=== PATIENT | female | born 1960 | race Caucasian/White ===

== ENCOUNTER 2023-03-28 03:37 | Emergency (ER) | payer OTHER ==
[~2023-03-28] VITALS: Ht 170.2 cm; Wt 110.7 kg
[2023-03-28] MEDS ORDERED: diphenhydrAMINE 25 MG CAP PO ONE ×2 (04:37→04:45)
[2023-03-28] MEDS ORDERED: HYDROMORPHONE 1 MG/1 ML DISP.SYRIN ONE (04:37)
[2023-03-28] MEDS ORDERED: KETOROLAC TROMETHAMINE 30 MG INJ ONE (04:37)
[2023-03-28] MEDS ORDERED: CYCLOBENZAPRINE HCL 10 MG TABLET ONE (04:37)
[2023-03-28] MEDS ORDERED: HYDR-3980 PO (04:38)
[2023-03-28] MEDS ORDERED: CYCL10TA9 PO (04:38)
[2023-03-28] MEDS ORDERED: KETOROLAC TROMETHAMINE 30 MG INJ IM ONE (04:45)
[2023-03-28] MEDS ORDERED: HYDROMORPHONE 1 MG/1 ML DISP.SYRIN IM ONE (04:45)
[2023-03-28] MEDS ORDERED: CYCLOBENZAPRINE HCL 10 MG TABLET PO ONE (04:45)
[2023-03-28 05:39] VITALS: BP 140/85; TEMP 98.6; O2SAT 99
== END 2023-03-28 05:40 | disposition home or self-care (01) ==
LOC: ER 03:47
DX: M54.41 Lumbago with sciatica, right side (principal); J44.9 Chronic obstructive pulmonary disease, unspecified
CPT/HCPCS: 99284; 96372 ×2; Q0163; J1885; J1170

== ENCOUNTER 2023-06-02 11:31 | Emergency (ER) | payer OTHER ==
[~2023-06-02] VITALS: Ht 165.1 cm; Wt 95.3 kg
[~2023-06-02 11:31] MED LIST: CYCL10TA9 PO; HYDR-3980 PO
[2023-06-02] MEDS ORDERED: LETR2.5T PO (11:53)
[2023-06-02] MEDS ORDERED: FLUT1DIS28 IH (11:53)
[2023-06-02] MEDS ORDERED: APIX5TAB PO (11:53)
[2023-06-02 12:32] LABS: CARBON DIOXIDE 29 mmol/L (21-32); CHLORIDE 98 mmol/L (98-107); CREATININE 1.1 mg/dL (0.6-1.3); GLUCOSE 144 mg/dL (74-106); POTASSIUM 3.8 mmol/L (3.5-5.1); SODIUM SERUM 135 mmol/L (136-145); UREA NITROGEN, BLOOD 17 mg/dL (7-18)
[2023-06-02 12:45] LABS: ALANINE AMINOTRANSFERASE 19 U/L (14-59); ALBUMIN 3.2 g/dL (3.4-5.0); ALKALINE PHOSPHATASE 133 U/L (50-136); ASPARTATE AMINOTRANSFERASE 15 U/L (15-37); BILIRUBIN,DIRECT 0.1 mg/dL (0.0-0.2); BILIRUBIN,TOTAL 0.3 mg/dL (0.2-1.0); NT-PRO BNP 80 pg/mL (0-125); TOTAL PROTEIN, SERUM 8.1 g/dL (6.4-8.2)
[2023-06-02 12:49] LABS: BASOPHILS # (AUTO) 0.1 K/UL (0.0-0.2); BASOPHILS % (AUTO) 0.7 % (0.0-2.0); DIFFERENTIAL COMMENT 0; EOSINOPHILS # (AUTO) 0.2 K/uL (0.0-0.7); EOSINOPHILS % (AUTO) 1.8 % (0.0-7.0); HEMATOCRIT 35.3 % (31.2-41.9); HEMOGLOBIN 11.4 g/dL (10.9-14.3); LYMPHOCYTES % (AUTO) 19.1 % (20.5-51.5); MEAN CORPUSCULAR HEMOGLOBIN 25.4 uug (24.7-32.8); MEAN CORPUSCULAR HGB CONC 32 g/dL (32.3-35.6); MEAN CORPUSCULAR VOLUME 78.9 fL (75.5-95.3); MONOCYTES # (AUTO) 0.8 K/uL (0.1-1.30); MONOCYTES % (AUTO) 7.5 % (0.0-11.0); NEUTROPHILS # (AUTO) 7.4 K/uL (1.8-8.9); NEUTROPHILS % (AUTO) 70.9 % (38.5-71.5); PLATELET COUNT (AUTO) 354 K/uL (179-408); RED BLOOD CELL COUNT(AUTO) 4.48 MIL/uL (3.63-4.92); RED CELL DISTRIBUTION WIDTH 16.4 % (12.3-17.7); WHITE BLOOD COUNT (AUTO) 10.4 K/uL (3.8-11.8)
[2023-06-02] MEDS ORDERED: IV NORMAL SALINE 250 ML IV ONE (13:40)
[2023-06-02] MEDS ORDERED: IOHEXOL 350 100 ML INFUS..BTL ONE (13:41)
[2023-06-02] MEDS ORDERED: SWABABLE VALVE TRANSFER SET EA MC ONE (13:41)
[2023-06-02 16:44] VITALS: O2SAT 96
[2023-06-02] MEDS ORDERED: FUROSEMIDE 40 MG/4 ML VIAL IV ONE (18:00)
== END 2023-06-02 20:03 | disposition left against medical advice (07) ==
LOC: ER 11:31
DX: I26.09 Other pulmonary embolism with acute cor pulmonale (principal); J44.1 Chronic obstructive pulmonary disease with (acute) exacerbation; Z98.890 Other specified postprocedural states; Z79.899 Other long term (current) drug therapy
CPT/HCPCS: 36415; 71045; 71275; 83605; 84484; 85025; 85730; 87040; 93005; A4606; A4663; Q9967

== ENCOUNTER 2025-04-05 03:08 | Emergency (ER) | payer OTHER ==
[~2025-04-05] VITALS: Ht 170.2 cm; Wt 104.3 kg
[~2025-04-05 03:08] MED LIST changes: +APIX5TAB PO; -CYCL10TA9 PO; +FLUT1DIS4 IH; +LETR2.5T PO
[2025-04-05 03:16] VITALS: BP 139/88
[2025-04-05] MEDS ORDERED: HYDR-4209 PO (03:47)
[2025-04-05] MEDS ORDERED: AMOX-319 PO (03:47)
[2025-04-05 03:55] VITALS: BP 139/88; O2SAT 97
== END 2025-04-05 03:56 | disposition home or self-care (01) ==
LOC: ER 03:15
DX: K04.7 Periapical abscess without sinus (principal); K02.9 Dental caries, unspecified; J44.9 Chronic obstructive pulmonary disease, unspecified; G89.29 Other chronic pain; Z79.01 Long term (current) use of anticoagulants; M25.562 Pain in left knee; Z79.51 Long term (current) use of inhaled steroids; Z79.811 Long term (current) use of aromatase inhibitors; Z85.3 Personal history of malignant neoplasm of breast; Z86.711 Personal history of pulmonary embolism; Z87.891 Personal history of nicotine dependence; Z88.7 Allergy status to serum and vaccine; Z91.81 History of falling
CPT/HCPCS: A4606; A4663